=== PATIENT | male | born 1940 ===

== ENCOUNTER 2019-03-01 10:34 | Inpatient (IN) | payer OTHER ==
[~2019-03-01] VITALS: Ht 162.6 cm; Wt 78.9 kg
[2019-03-01] MEDS ORDERED: CARDIZEM CD180 M1 PO (11:51)
[2019-03-01] MEDS ORDERED: AMIODARONE PO (11:52)
[2019-03-01] MEDS ORDERED: LOPRESS PO (11:52)
[2019-03-01] MEDS ORDERED: VASOTEC20 M1 PO (11:52)
[2019-03-01] MEDS ORDERED: CARDURA PO (11:53)
[2019-03-01] MEDS ORDERED: [UNRECOGNIZED DRUG - OTHER] PO (11:53)
[2019-03-01] MEDS ORDERED: ELEQUIS PO (11:54)
[2019-03-01] MEDS ORDERED: POTASS PO (11:55)
[2019-03-01] MEDS ORDERED: PROTONIX40 MG PO (11:55)
[2019-03-01] MEDS ORDERED: BUTALBITAL-ACE1 EACH PO (11:56)
[2019-03-01] MEDS ORDERED: B TREX PO (11:57)
[2019-03-09] MEDS ORDERED: LOPRESSOR25 MG PO (10:03)
[2019-03-09] MEDS ORDERED: DOXAZOSIN MESYLA2 MG PO (10:04)
[2019-03-09] MEDS ORDERED: HYDROCHLOROTHIA25 MG PO (10:04)
[2019-03-09] MEDS ORDERED: ELIQUIS5 MG PO (10:05)
[2019-03-09] MEDS ORDERED: AMIODARONE HCL200 MG PO (10:06)
[2019-03-09] MEDS ORDERED: POTASSIUM99 M1 PO (10:07)
[2019-03-12] MEDS ORDERED: ELIQUIS2.5 MG PO (07:34)
[2019-03-12] MEDS ORDERED: CEFADROXIL500 MG PO (07:34)
[2019-03-12] MEDS ORDERED: PERCOCET 5-3251 EACH PO (07:34)
== END 2019-03-13 12:18 | DRG 470 ==
LOC: SURH 10:45 → O/R 03-09 05:50 → SURH 03-09 10:45 → SURG 03-09 15:57
PROVIDERS: ADMIT Orthopaedic Surgery
PROC: 0MNN0ZZ Release Right Knee Bursa and Ligament, Open Approach (ICD-10-PCS; 2019-03-09)
PROC: 0SRC0J9 Replacement of Right Knee Joint with Synthetic Substitute, Cemented, Open Approach (ICD-10-PCS; principal; 2019-03-09 12:30)
PROC: 30233N1 Transfusion of Nonautologous Red Blood Cells into Peripheral Vein, Percutaneous Approach (ICD-10-PCS; 2019-03-11)
DX: M17.11 Unilateral primary osteoarthritis, right knee (principal); D62 Acute posthemorrhagic anemia; E72.11 Homocystinuria; E72.12 Methylenetetrahydrofolate reductase deficiency; M22.11 Recurrent subluxation of patella, right knee; I11.9 Hypertensive heart disease without heart failure; I25.10 Atherosclerotic heart disease of native coronary artery without angina pectoris; Z96.651 Presence of right artificial knee joint